=== PATIENT | male | born 1975 | race African-American/Black ===

== ENCOUNTER 2016-09-11 17:25 | Emergency (ER) | payer OTHER ==
[~2016-09-11] VITALS: Ht 175.3 cm; Wt 117.9 kg
[2016-09-11] MEDS ORDERED: IBUPROFEN 600600 M1 PO (18:58)
[2016-09-11] MEDS ORDERED: TIZANIDINE HCL4 MG PO (18:58)
[2016-09-11 19:20] VITALS: BP 155/98
== END 2016-09-11 19:46 | disposition home or self-care (01) ==
LOC: ER 17:25
DX: S16.1XXA Strain of muscle, fascia and tendon at neck level, initial encounter (principal); M25.531 Pain in right wrist; M25.532 Pain in left wrist; V43.52XA Car driver injured in collision with other type car in traffic accident, initial encounter; Y93.89 Activity, other specified; Y92.89 Other specified places as the place of occurrence of the external cause; Y99.9 Unspecified external cause status

== ENCOUNTER 2020-01-20 20:33 | Emergency (ER) | payer OTHER ==
[~2020-01-20] VITALS: Ht 175.3 cm; Wt 124.7 kg
[~2020-01-20 20:33] MED LIST: IBUPROFEN 600600 M1 PO; NAPROSYN500 MG PO; TIZANIDINE HCL4 MG PO; TRAMADOL 50 MG50 MG PO
[2020-01-20 20:39] VITALS: BP 132/97
[2020-01-20] MEDS ORDERED: NOHOMEMEDICATIONS (20:43)
[2020-01-20] MEDS ORDERED: NAPROSYN500 MG PO (21:08)
== END 2020-01-20 21:20 ==
LOC: ER 20:33
DX: M25.562 Pain in left knee (principal)